=== PATIENT | male | born 1975 | race Caucasian/White ===

== ENCOUNTER → 2018-10-24 | Outpatient (CLI) | payer BC, OTHER ==
--- NOTE | 2018-10-25 09:37 | SLEEP ---
DATE OF STUDY: 10/24/2018 ATTENDING PHYSICIAN: Dr. Brennan The patient is 43 years old who weighs 255 pounds with a BMI of 37. The patient's [place] score was 7. The patient underwent sleep study performed at [facility]. During the night study, the patient spent 415 minutes in bed and slept for 394 minutes with a sleep efficiency of 95%. Sleep latency was 11 minutes with a REM latency of 109 minutes. Overall, sleep architecture showed normal stage 1 sleep, increased stage 2 sleep, normal N3 sleep and normal REM sleep. During the night study, the patient had 49 obstructive apneas, 6 mixed apneas, 1 central apnea and 49 hypopneas. The patient's apnea hypopnea index was 16 per hour with a supine index of 24 per hour and a REM index of 68 per hour. EKG monitoring revealed normal sinus rhythm, average heart rate was 66 beats per minute. No arrhythmias observed. Nocturnal oximetry study revealed a mean oxygen saturation of 94% with the lowest of 81%. 6% of time oxygen saturation remained between 80% and 89%. This was predominantly during REM sleep. PLMS were seen at index of 24 per hour and 4 per hour caused EEG arousals. The patient did meet the criteria for CPAP initiation, but it was late in the night and CPAP could not be initiated. IMPRESSION: 1. Moderate sleep apnea-hypopnea syndrome with worsening during REM sleep. Total AHI 16 per hour with a REM AHI of 68 per hour. 2. Nocturnal hypoxia secondary to obstructive sleep apnea. 3. Moderate periodic limb movements. RECOMMENDATIONS: 1. The patient would benefit from return to the sleep lab for CPAP titration. 2. Once the patient is optimally treated, then follow up in 4-6 weeks to assess compliance with CPAP and to document clinical improvement. 3. Weight loss is strongly advised. 4. 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 5. Caution regarding driving until symptoms of sleep apnea resolved with the above recommendation. 6. The patient should also be further evaluated for symptoms of restless legs during the day. ALONSO SPRINGER MD DR: NARCISO/elliot JOB#: [id number] / [id number] LEE ToscanoD
== END | disposition home or self-care (01) ==
LOC: SLPLAB 19:05
PROVIDERS: ATTEND Family Medicine
DX: G47.33 Obstructive sleep apnea (adult) (pediatric) (principal); R06.83 Snoring; R09.02 Hypoxemia; R68.89 Other general symptoms and signs
CPT/HCPCS: 95810

== ENCOUNTER → 2018-11-29 | Outpatient (CLI) | payer BC ==
--- NOTE | 2018-12-04 12:49 | SLEEP ---
DATE OF STUDY: 11/29/2018 ATTENDING PHYSICIAN: Dr. Brennan. REFERRING PHYSICIAN: Dr. Eddie May. INDICATIONS: The patient is 43 years old who weighs 255 pounds with a BMI of 37. The patient has a history of sleep apnea and was referred back for CPAP titration study. This was performed at [facility]. DESCRIPTION: During the night study, the patient spent 408 minutes in bed and slept for 394 minutes with a normal sleep efficiency of 90%. Sleep latency was 2 minutes with a REM latency of 61 minutes. Overall, sleep architecture showed normal stage 1 and stage 2 sleep, increased N3 sleep and normal REM sleep. EKG monitoring revealed normal sinus rhythm. No sustained arrhythmias observed. No clinically significant PLMS observed. The patient was started on CPAP at 5 cm water and titrated up to 7 cm water. At the final pressure, the patient slept for 249 minutes. The patient had supine sleep as well as REM sleep. The patient's AHI was reduced to 0 per hour and oxygen saturation remained above 92%. The patient used small size nasal mask. IMPRESSION: 1. Sleep apnea diagnosed by previous sleep study. 2. No clinically significant periodic limb movements during sleep. RECOMMENDATIONS: 1. CPAP at 7 cm water completely eliminated the patient's sleep apnea and should be used on a nightly basis. 2. Follow up in 4-6 weeks to assess compliance with CPAP and to document clinical improvement. 3. Weight loss is strongly advised. 4. Avoid DIRECTOR PUBLIC depressants. 5. Caution regarding driving until symptoms of sleep apnea resolve with the use of CPAP. ALONSO SPRINGER MD DR: NARCISO/elliot JOB#: [id number] / [id number] SERA Toscano GEORGE MD
== END | disposition home or self-care (01) ==
LOC: RT 18:59
PROVIDERS: ATTEND Internal Medicine Pulmonary Disease
DX: G47.33 Obstructive sleep apnea (adult) (pediatric) (principal)
CPT/HCPCS: 95811